=== PATIENT | female | born 1945 | race Caucasian/White ===

== ENCOUNTER → 2020-12-31 | Day surgery (SDC) | payer OTHER ==
--- NOTE | 2020-12-31 16:48 | RAD REPORT ---
EXAM DESCRIPTION: US - Fine Needle Asp Breast Guide - 12/31/2020 11:52 am CLINICAL HISTORY: Dilated ductal and system retroareolar right breast COMPARISON: None. FINDINGS: The patient presents for ultrasound-guided aspiration as requested. The procedure, risks a nd alternatives were discussed with the patient in detail. After answering all questions, oral and w ritten consent were obtained. Time out procedure was performed. Patient was adequately off off antico agulation therapy. The patient had no contraindicated allergy or medication history. Preliminary imaging again identified the retroareolar right breast hypoechoic tissue believed be part of dilated ducts. The skin was prepped and draped in the usual sterile fashion. Skin and deeper ti ssues were anesthetized with 1 percent lidocaine. Under direct sonographic visualization, the a 22 ga uge needle was advanced into the area of concern. A syringe vacuum aspiration did not yield any measu rable material. A total of 4 aspirations performed using 25 gauge needle. Specimens were given to pat hology for cytology and histology assessment. The patient tolerated the procedure well without complications. Post-procedure care and precaution in structions were given to the patient. IMPRESSION: Aspiration of retroareolar right tissue as detailed. All material was given to pathology for cytology/histology evaluation.
== END ==
LOC: DS 12-17 09:35
PROVIDERS: ATTEND Surgery
DX: N63.10 Unspecified lump in the right breast, unspecified quadrant (principal)
CPT/HCPCS: 10005; 76942; 88162; 88305

== ENCOUNTER 2024-03-23 10:09 | Day surgery (SDC) | payer OTHER ==
[2024-03-23 10:08] LABS: Absolute Basophils 0.1 K/uL (0-0.5); Absolute Eosinophils 0.1 K/uL (0-0.5); Absolute Lymphocytes (CBC) 2.6 K/uL (0.7-4.9); Absolute Monocytes 1.9 K/uL (0.1-1.3); Absolute Neutrophil 6.1 K/uL (1.8-8.0); Basophils % 1.3 % (0-1.3); Eosinophils % 0.9 % (0-4.4); Hematocrit 39.3 % (36.0-45.0); Hemoglobin 13.1 g/dL (12.0-15.0); Lymphocytes % 23.8 % (15.3-44.8); MCH 28.2 pg (27.0-35.0); MCHC 33.2 g/dL (32.0-36.0); MPV 8.7 fL (7.6-11.3); Monocytes % 17.5 % (3.3-12.3); Neutrophils % 56.5 % (41.7-73.7); Platelets 383 thou/uL (152-406); RBC Red Blood Cell Count 4.63 M/uL (3.86-4.86)
--- NOTE | 2024-03-23 10:30 | RAD REPORT ---
EXAM DESCRIPTION: RAD - Chest Pa And Lat (2 Views) - 03/23/2024 10:22 am CLINICAL HISTORY: pre op pending mass removal back, diabetic COMPARISON: Chest Pa And Lat (2 Views) dated 12/23/2016; CHEST SINGLE VIEW dated 10/25/2013; CHEST PA AND LAT 2 VIEW dated 03/10/2005 FINDINGS: Lines: Pacemaker . Lungs: No evidence of edema or pneumonia. Pleural: No significant pleural effusions or pneumothorax. Cardiac: The heart size is within normal limits. Mediastinum: Within normal limits. Bones: No acute fractures. Remote right-sided rib fractures . Other: None IMPRESSION: No acute cardiopulmonary disease.
[2024-03-23] MEDS ORDERED: NA CHLORIDE 0.9% 1,000 ML ONE (10:41)
[2024-03-23] MEDS ORDERED: KETOROLAC 30 MG/ML INJ ONE (11:37)
[2024-03-23] MEDS ORDERED: LIDOCAINE 1% MPF 5 ML VIAL ONE (11:37)
[2024-03-23] MEDS ORDERED: FENTANYL CITR 100 MCG/2 ML ONE (11:38)
[2024-03-23] MEDS ORDERED: propofoL 200 MG/20 ML VIAL IV ONE (11:38)
[2024-03-23] MEDS ORDERED: MIDAZOLAM HCL 2 MG/2 ML INJ ONE (11:38)
[2024-03-23] MEDS: CEFAZOLIN SODIUM 1 GM/VIAL IVP ONE ×2 (12:37→13:10)
[2024-03-23] MEDS: BUPIVACA 0.5%/EPI 0.0005%/PF 30 ML VIAL SQ ONE ×2 (12:38→13:18)
[2024-03-23] MEDS ORDERED: CEFAZOLIN SODIUM 1 GM/VIAL ONE (12:56)
[2024-03-23] MEDS ORDERED: EPHEDRINE SULF 50 MG/ML VIAL ONE (13:13)
--- NOTE | 2024-03-23 13:32 | P.BOP ---
Preoperative diagnosis: right lower back infected subQ mass with abscess Postoperative diagnosis: same Primary procedure: Excisional biopsy with abscess drainage of right lower back infected subQ m Secondary procedure: [id number] Estimated blood loss: <10cc Specimen: mass and abscess culture Findings: mass with abscess Anesthesia: General Complications: None Drain(s): Other (wet to dry NS) Transferred to: Recovery Room Condition: Good
--- NOTE | 2024-03-23 14:05 | EKG ---
Test Date: 2024-03-23 Test Time: 09:52:00 Concrete Hopper Operator: SATYA MEASUREMENT RESULTS: Intervals: Rate: 91 MN: 184 QRSD: 144 QT: 400 QTc: 492 [place]: P: 58 MN: 184 QRS: 269 T: 65 INTERPRETIVE STATEMENTS: Normal sinus rhythm Right bundle branch block Abnormal ECG Compared to ECG 10/24/2013 15:20:15 Right bundle-branch block now present Incomplete right bundle-branch block no longer present Electronically Signed On 03-23-24 14:05:02 CDT by Virgilio Guillen
[2024-03-23 15:02] VITALS: BP 129/54; TEMP 97.3; O2SAT 98
--- NOTE | 2024-03-23 16:03 | OP ---
Date of Procedure: 03/23/2024 Surgeon: Daniel Kulkarni MD Preoperative Diagnosis: Right lower back infected subcutaneous mass with abscess. Postoperative Diagnosis: Right lower back infected subcutaneous mass with abscess. Procedure: Excisional biopsy with abscess drainage of an infected right lower back subcutaneous mass about 8 x 6 x 2 cm. Estimated Blood Loss: Less than 10 cc. Specimen: Mass with abscess culture. Finding: Mass with purulent discharge from pus coming from that region goes deep to about 2 to almos t 3 cm deep. The fascia and the muscle were not involved. The mass was excised, abscess was opened with loculations were explored, opened, irrigated. Local anesthetic was applied. Hemostasis was obt ained. Then, the area was packed with wet-to-dry dressing. The patient tolerated the procedure well . The patient was sent to recovery in stable condition. Sponge count and instrument counts were cor rect. ANTONIO/MK Voice ID: [id number] Report ID: [id number]
--- NOTE | 2024-03-26 06:05 | DS ---
Date of Discharge: 03/23/2024 Diagnosis: Right lower back infected subcutaneous mass with abscess. Procedure: Excisional biopsy of infected right subcutaneous mass with abscess drainage. Condition: Stable. Disposition: Home. Activity: As tolerated. No heavy lifting. Discharge Instructions: [facility]. I will be t here at the [facility] at [facility] in the morning and/or [place] in the afternoon. She almodovar s home health agencies and [facility] that will be doing the dressing changes. ANTONIO/MK Voice ID: [id number] Report ID: [id number]
== END 2024-03-23 14:52 | disposition home or self-care (01) ==
LOC: OR 10:09
PROVIDERS: ATTEND Surgery
PROC: 0JB70ZZ Excision of Back Subcutaneous Tissue and Fascia, Open Approach (ICD-10-PCS; principal; 2024-03-23 12:30)
DX: L72.0 Epidermal cyst (principal); L08.89 Other specified local infections of the skin and subcutaneous tissue; L02.212 Cutaneous abscess of back [any part, except buttock and flank]
CPT/HCPCS: 11403; 93005; 87070; 85025; 80048; 36415; 87205; 82947; 88304; 87075; 71046; J2704; J2001; J2250; J3010; J7030; J0690 ×2

== ENCOUNTER 2024-06-19 11:30 | Emergency (ER) | payer OTHER ==
--- NOTE | 2024-06-19 11:50 | ER ---
Nurse's Notes [facility] Name: Travis Lopez Age: 79 yrs Sex: Female : 1945 Arrival Date: 06/19/2024 Time: 11:30 Bed IW8 Private MD: Diagnosis: Essential (primary) hypertension Presentation: 06/19 11:42 Chief complaint: Patient states: I was in the [facility] care center and they were getting tm6 blood pressure readings of SBP 200s. Patient denies any other symptoms. No weakness, no dizziness, no headache, no other symptoms. Coronavirus screen: Client denies travel out of the [place] in the last 14 days. Ebola Screen: Patient negative for fever greater than or equal to 101.5 degrees Fahrenheit, and additional compatible Ebola Virus Disease symptoms Patient denies exposure to infectious person. Patient denies travel to an Ebola-affected area in the 21 days before illness onset. No symptoms or risks identified at this time. Initial Sepsis Screen: Does the patient meet any 2 criteria? No. Patient's initial sepsis screen is negative. Does the patient have a suspected source of infection? No. Patient's initial sepsis screen is negative. Risk Assessment: Do you want to hurt yourself or someone else? Patient reports no desire to harm self or others. Onset of symptoms was June 19, 2024. 11:42 Method Of Arrival: Wheelchair tm6 11:42 Acuity: FLORES 3 tm6 Triage Assessment: 11:42 General: Appears in no apparent distress. Behavior is calm, cooperative. Pain: Denies tm6 pain. EENT: No signs and/or symptoms were reported regarding the EENT system. Neuro: Level of Consciousness is awake, alert, obeys commands, Oriented to person, place, time, situation, Reports nothing. Cardiovascular: Patient's skin is warm and dry. Respiratory: Airway is patent Respiratory effort is even, unlabored, Respiratory pattern is regular, symmetrical. GI: No signs and/or symptoms were reported involving the gastrointestinal system. Abdomen is flat, non-distended. : No signs and/or symptoms were reported regarding the genitourinary system. Derm: No signs and/or symptoms reported regarding the dermatologic system. Musculoskeletal: No signs and/or symptoms reported regarding the musculoskeletal system. Historical: - Allergies: 11:41 No Known Allergies; tm6 - PMHx: 11:41 Hypertensive disorder; Transient cerebral ischemia; tm6 - PSHx: 11:41 pacemaker; back; tm6 - Immunization history:: Client reports receiving the 2nd dose of the Covid vaccine. - Infectious Disease History:: Denies. - Social history:: Smoking status: Patient denies any tobacco usage or history of. - Family history:: not pertinent. Screenin:50 [facility] ED Fall Risk Assessment (Adult) History of falling in the last 3 months, tm6 including since admission No falls in past 3 months (0 pts) Confusion or Disorientation No (0 pts) Intoxicated or Sedated No (0 pts) Impaired Gait Yes (1 pt) Mobility Assist Device Used No (0 pt) Altered Elimination No (0 pt) Score/Fall Risk Level 0 - 2 = Low Risk Oriented to surroundings, Maintained a safe environment, Educated pt \T\ family on fall prevention, incl call for assistance when getting out of bed. Abuse screen: Denies threats or abuse. Denies injuries from another. Nutritional screening: No deficits noted. Tuberculosis screening: No symptoms or risk factors identified. Assessment: 11:50 Reassessment: see triage assessment. tm6 Vital Signs: 11:42 BP 185 / 72; Pulse 60; Resp 17; Temp 98.4(O); Pulse Ox 95% on R/A; MAP 102 mmHg; Weight tm6 79.38 kg; Height 5 ft. 7 in. ; Pain 0/10; 11:42 Body Mass Index 27.41 (79.38 kg, 170.18 cm) tm6 11:42 Pain Scale: Adult tm6 ED Course: 11:38 Patient arrived in ED. ra3 11:42 Arm band placed on left wrist. tm6 11:43 Derrell Mcamhan MD is Attending Physician. rt 11:46 Triage completed. tm6 11:50 Patient has correct armband on for positive identification. Provided Education on: tm6 follow up with pcp. 11:50 No provider procedures requiring assistance completed. Patient did not have IV access tm6 during this emergency room visit. Administered Medications: No medications were administered Medication: 11:50 VIS not applicable for this client. tm6 Outcome: 11:50 Discharge ordered by . rt 12:02 Discharged to home via wheelchair, with family, tm6 12:02 Condition: stable 12:02 Discharge instructions given to patient, family, Instructed on discharge instructions, follow up and referral plans. Demonstrated understanding of instructions, follow-up care, 12:02 Patient left the ED. tm6 Signatures: Derrell Mcmahan MD MD rt Alex Saba RN RN tm6 Yenny Ibanez 3
--- NOTE | 2024-06-19 11:50 | EDPHYS ---
Physician Documentation [facility] Name: Travis Lopez Age: 79 yrs Sex: Female : 1945 Arrival Date: 06/19/2024 Time: 11:30 Bed IW8 Private MD: ED Physician Derrell Mcmahan HPI: 06/19 15:46 This 79 yrs old Female presents to ER via Wheelchair with complaints of High Blood rt Pressure. 15:46 Patient presents to the ED with hypertension at wound care, reportedly to the 200 rt range. Triage note states that the patient is complaining of signs symptoms concerning for stroke, however, patient denies any numbness, weakness, symptoms attributable to a stroke. The patient denies any chest pain, shortness of breath, any complaints at this time. Patient states that she wishes to go home without any workup. Symptoms are mild in severity, no other aggravating alleviating factors.. Historical: - Allergies: 11:41 No Known Allergies; tm6 - PMHx: 11:41 Hypertensive disorder; Transient cerebral ischemia; tm6 - PSHx: 11:41 pacemaker; back; tm6 - Immunization history:: Client reports receiving the 2nd dose of the Covid vaccine. - Infectious Disease History:: Denies. - Social history:: Smoking status: Patient denies any tobacco usage or history of. - Family history:: not pertinent. ROS: 15:46 Constitutional: Negative for fever, chills, and weight loss, Cardiovascular: Negative rt for chest pain, palpitations, and edema, Respiratory: Negative for shortness of breath, cough, wheezing, and pleuritic chest pain, Abdomen/GI: Negative for abdominal pain, nausea, vomiting, diarrhea, and constipation, MS/Extremity: Negative for injury and deformity, Neuro: Negative for headache, weakness, numbness, tingling, and seizure, Exam: 15:46 Constitutional: This is a well developed, well nourished patient who is awake, alert, rt and in no acute distress. Head/Face: Normocephalic, atraumatic. Chest/axilla: Normal chest wall appearance and motion. Nontender with no deformity. No lesions are appreciated. Cardiovascular: Regular rate and rhythm with a normal S1 and S2. No gallops, murmurs, or rubs. Normal PMI, no JVD. No pulse deficits. Respiratory: Lungs have equal breath sounds bilaterally, clear to auscultation and percussion. No rales, rhonchi or wheezes noted. No increased work of breathing, no retractions or nasal flaring. Abdomen/GI: Soft, non-tender, with normal bowel sounds. No distension or tympany. No guarding or rebound. No evidence of tenderness throughout. Skin: Warm, dry with normal turgor. Normal color with no rashes, no lesions, and no evidence of cellulitis. MS/ Extremity: Pulses equal, no cyanosis. Neurovascular intact. Full, normal range of motion. Neuro: Awake and alert, GCS 15, oriented to person, place, time, and situation. Cranial nerves II-XII grossly intact. Motor strength 5/5 in all extremities. Sensory grossly intact. Cerebellar exam normal. Normal gait. Vital Signs: 11:42 BP 185 / 72; Pulse 60; Resp 17; Temp 98.4(O); Pulse Ox 95% on R/A; MAP 102 mmHg; Weight tm6 79.38 kg; Height 5 ft. 7 in. ; Pain 0/10; 11:42 Body Mass Index 27.41 (79.38 kg, 170.18 cm) tm6 11:42 Pain Scale: Adult tm6 MDM: 11:49 Medical Screening Exam initiated rt 15:46 Differential diagnosis: Hypertension. Data reviewed: vital signs, nurses notes. Test rt considered but Not performed: Other Details Patient has no symptoms associated with the hypertension, is coming down compared to before. She states that she does not wish to have any workup performed at this time. Believe this is reasonable, patient to monitor her blood pressures at home, follow-up as an outpatient return for any worsening symptoms.. Counseling: I had a detailed discussion with the patient and/or guardian regarding the historical points, exam findings, and any diagnostic results supporting the discharge/admit diagnosis, the presence of at least one elevated blood pressure reading (>120/80) during this emergency department visit, the need for outpatient follow up, to return to the emergency department if symptoms worsen or persist or if there are any questions or concerns that arise at home. Administered Medications: No medications were administered Disposition Summary: 06/19/24 11:50 Discharge Ordered Notes: Location: Home rt Problem: new rt Symptoms: have improved rt Condition: Stable rt Diagnosis - Essential (primary) hypertension rt Followup: rt - With: Private Physician - When: 2 - 3 days - Reason: Discharge Instructions: - Discharge Summary Sheet rt - Hypertension, Adult rt Forms: - Medication Reconciliation Form rt - Antibiotic Education rt - Prescription Opioid Use rt - Patient Portal Instructions rt - Leadership Thank You Letter rt Signatures: Derrell Mcmahan MD MD rt Alex Saba RN RN tm6
[2024-06-19 12:06] VITALS: BP 185/72; TEMP 98.4; O2SAT 95
== END 2024-06-19 12:02 | disposition home or self-care (01) ==
LOC: ER 11:30
DX: I10 Essential (primary) hypertension (principal); Z95.0 Presence of cardiac pacemaker
CPT/HCPCS: 99282